=== PATIENT | male | born 1965 | race Caucasian/White ===

== ENCOUNTER 2020-06-03 10:10 | Outpatient (CLI) | payer BC ==
--- NOTE | 2020-06-03 16:13 | NM ---
Radionucleotide three-phase bone scan HISTORY: Mechanical loosening of internal left knee prosthetic joint. Left knee pain. COMPARISON: Bone scan 06/12/2016. Correlated with current radiographs. FINDINGS: Flow and immediate blood pool images show asymmetric uptake about the knees, greater on the left than the right. The blood pool images show radiotracer to accumulate around the left knee metallic prosthesis, more greatly involving the femur and patella than the tibia. Intensity on the blood pool images is similar to the 2017 exam. Uptake at the same locations on the delayed images is also again demonstrated. The tibial uptake become slightly less intense, compared to the current blood poo l images and compared to the prior delayed images. The degenerative uptake of the medial compartment right knee on the prior exam is less intense on today's study. Prominent, heterogeneous degenerative type uptake is present around the shoulders and sternoclavicula r joints. A small focus of uptake is noted at the right eighth costovertebral junction. Rib radiographs were obtained, showing no osseous lesion. The finding is likely related to degenerative c hanges. Some urine contamination around the pelvis. IMPRESSION : Abnormal 3 phase uptake around the left knee prosthesis, as detailed above. Nearly identical to the p rior exam from 06/12/2016. The abnormality indicates an acute process: loosening or infection. If other clinical findings do not differentiate between the 2, radionucleotide white blood cell scan could be used to evaluate for white blood cell accumulation at the knee.
--- NOTE | 2020-06-03 17:33 | RAD ---
LEFT KNEE FOUR VIEWS: 06/03/20 INDICATION: History of abnormal bone scan and left knee pain. COMPARISON: Bone scan dated 06/03/20. FINDINGS: No suspicious osteoblastic lesion is evident. The left total knee prosthesis projects in the expected position without gross evidence of loosening. No definite joint capsular distention is noted. IMPRESSION: Radiographically normal appearing left knee status post left total knee arthroplasty. POS: BH
--- NOTE | 2020-06-03 17:51 | RAD ---
PA VIEW OF THE CHEST WITH THREE VIEWS OF THE RIGHT CHEST WALL: 06/03/20 INDICATION: Concern for abnormal bone scan. COMPARISON: Three phase bone scan dated 06/03/20. FINDINGS: No definite displaced fracture is evident. No suspicious osteolytic lesion is evident involving the r ight chest wall. The visualized lungs are clear. Heart size is normal. No pleural effusion or pneumot horax is evident. No acute osseous abnormality is evident. IMPRESSION: No acute abnormality. POS: BH
== END 2020-06-03 10:11 | disposition home or self-care (01) ==
LOC: NM 10:10
PROVIDERS: ATTEND Orthopaedic Surgery
DX: T84.033D Mechanical loosening of internal left knee prosthetic joint, subsequent encounter (principal); M25.462 Effusion, left knee
CPT/HCPCS: 78315; A9503